=== PATIENT | male | born 1965 | race Caucasian/White ===

== ENCOUNTER 2020-06-26 15:03 | Inpatient (IN) | payer BC, OTHER ==
[2020-06-26] VITALS (7 sets, daily range): BP systolic 132–174; BP diastolic 73–95
[~2020-06-26] VITALS: Ht 172 cm; Wt 79.3 kg
--- NOTE | 2020-06-26 15:23 | Diagnostic Imaging Report ---
PROCEDURE: CT head wo r/o stroke. TECHNIQUE: Multiple contiguous axial images were obtained through the brain without the use of intravenous contrast. Auto Exposure Controls were utilized during the CT exam to meet ALARA standards for radiation dose reduction. INDICATION: Left weakness. FINDINGS: Ventricles and sulci are within normal limits. There is no hydrocephalus. There is no midline shift. There is no intracranial mass, hemorrhage, or extra-axial fluid collection. Calvarium is intact. Sinuses and mastoid air cells are clear. There is no definitive evidence of an acute CVA. IMPRESSION: Unremarkable noncontrast CT head. Dictated by: Dictated on workstation # [id number]
[2020-06-26 15:25] LABS: ALBUMIN 4.2 GM/DL (3.2-4.5); BASOPHILS # (AUTO) 0.1 10^3/uL (0.0-0.1); BASOPHILS % (AUTO) 1 % (0-10); CHLORIDE 104 MMOL/L (98-107); EOSINOPHILS # (AUTO) 0.4 10^3/uL (0.0-0.3); EOSINOPHILS % (AUTO) 6 % (0-10); HEMATOCRIT 42 % (40-54); HEMOGLOBIN 14.6 G/DL (13.3-17.7); LYMPHOCYTES # (AUTO) 1.9 X 10^3 (1.0-4.0); LYMPHOCYTES % (AUTO) 25 % (12-44); MEAN CORPUSCULAR HEMOGLOBIN 31 PG (25-34); MEAN CORPUSCULAR HGB CONC 35 G/DL (32-36); MEAN CORPUSCULAR VOLUME 89 FL (80-99); MEAN PLATELET VOLUME 11.2 FL (7.4-10.4); MONOCYTES # (AUTO) 0.9 X 10^3 (0.0-1.0); MONOCYTES % (AUTO) 12 % (0-12); NEUTROPHILS # (AUTO) 4.4 X 10^3 (1.8-7.8); NEUTROPHILS % (AUTO) 57 % (42-75); PLATELET COUNT 218 10^3/uL (130-400); POTASSIUM 3.2 MMOL/L (3.6-5.0); RED CELL DISTRIBUTION WIDTH 13.4 % (10.0-14.5); SODIUM 138 MMOL/L (135-145); WHITE BLOOD COUNT 7.6 10^3/uL (4.3-11.0)
[2020-06-26 15:27] LABS: FIBRIN DEGRADATION PRODUCTS 0.55 UG/ML (0.00-0.49); GLUCOSE 108 MG/DL (70-105); PROTHROMBIN TIME PATIENT 13.9 SEC (12.2-14.7); TOTAL PROTEIN 6.8 GM/DL (6.4-8.2)
[2020-06-26 15:28] LABS: CARBON DIOXIDE 23 MMOL/L (21-32)
[2020-06-26 15:29] LABS: BILIRUBIN,TOTAL 0.5 MG/DL (0.1-1.0)
[2020-06-26] MEDS ORDERED: CATHETER FLUSH 10 ML SYR IV PRN (15:30)
[2020-06-26] MEDS ORDERED: HOLD METFORMIN - RECEIVED CONTRAST 20 ML VIAL IV SCH (15:30)
[2020-06-26] MEDS ORDERED: IOHEXOL 350 MG/ML 100 ML (OMNIPAQUE 350) VIAL IV ONE (15:30)
[2020-06-26] MEDS ORDERED: NS 100 ML (IVPB) BAG IV ONE (15:30)
[2020-06-26 15:31] LABS: ALKALINE PHOSPHATASE 86 U/L (40-136); CREATININE SERUM 1.17 MG/DL (0.60-1.30); GFR ESTIMATED > 60
[2020-06-26 15:32] LABS: BUN/CREATININE RATIO 10
[2020-06-26 15:34] LABS: ALANINE AMINOTRANSFERASE 23 U/L (0-55)
--- NOTE | 2020-06-26 15:45 | Diagnostic Imaging Report ---
CT cerebral perfusion June 26, 2020. INDICATION: Left-sided weakness. Correlation made with CT examination from the same day. TECHNIQUE: After intravenous administration of contrast, CT cerebral perfusion was performed in the usual fashion. Findings: There appear to be appropriate arterial input and venous outflow selections. There is mild motion on the translational maps. The arterial and venous curves appear appropriate for diagnostic assessment. On analysis with rapid stroke software, there are no regions of core infarct demonstrated of a cerebral blood flow of less than 30% volume. There are no findings of prolongation of the Tmax greater than 6 seconds. On the individual threshold maps, there is a small region of prolongation demonstrated within the right anterior temporal lobe with prolongation of 4 seconds, but this appears to be artifactual in nature related to the right mastoid ridge and skull base. The individual perfusion maps demonstrate no findings of focal asymmetry on the cerebral blood volume imaging or on cerebral blood flow. There are no definable deficits demonstrated on the mean transit time. IMPRESSION: 1. No CT perfusion evidence of a core infarct or findings to suggest a current penumbra. Dictated by: Dictated on workstation # [id number]
[2020-06-26] MEDS ORDERED: ALTEPLASE 100 MG/VIAL (ACTIVASE) ONE (15:46)
--- NOTE | 2020-06-26 15:57 | Diagnostic Imaging Report ---
PROCEDURE: CT angiography of the head and CT angiography of the neck with and without contrast. TECHNIQUE: Contiguous noncontrast images were obtained from the skull base through the vertex. After intravenous contrast administration, helical CT angiography of the neck was performed. Source data was reformatted into 3D MIP projections. Delayed post contrast acquisition was also obtained. Auto Exposure Controls were utilized during the CT exam to meet ALARA standards for radiation dose reduction. INDICATION: Left weakness. FINDINGS: Ventricles and sulci are within normal limits. There is no hydrocephalus. There is no midline shift. There is no mass, hemorrhage, or extra-axial fluid collection. There are no abnormal areas of contrast enhancement. There is no evidence of a large vessel occlusion. There is some minimal atherosclerotic plaque in the cavernous carotid artery on the right. There are no vascular malformations or aneurysms. The sinuses and mastoid air cells are clear. The nasopharyngeal, oropharyngeal, and hypopharyngeal tissues are symmetric and without mass effect. The parotid, submandibular, and thyroid glands are normal in appearance. There is mild cervical spondylosis. Prevertebral soft tissues are within normal limits. Epiglottis is normal. Lung apices are clear. There is no pathologically enlarged adenopathy or mass in the neck. There is moderate plaque in the proximal right internal carotid artery just distal to the bifurcation. There is mild plaque on the left. The vertebral arteries are widely patent as are the distal internal carotid arteries. There is no dissection or occlusion. IMPRESSION: No evidence of large vessel occlusion. Moderate plaque in the right proximal right internal carotid artery likely greater than 50% stenosis. Recommend correlation with carotid Doppler. Otherwise unremarkable CTA neck. Dictated by: Dictated on workstation # [id number]
--- NOTE | 2020-06-26 16:23 | ED Neurological Problem ---
General Chief Complaint: Neuro-Stroke Like Symptoms Stated Complaint: STROKE SYMPTOMS Nursing Triage Note: Pt to ED via EMS. EMS reports pt was at work when pt called boss and stated, "I need an ambulance." EMS reports had sudden onsent of L sided facial weakness, slurred speach. Last known well time for pt was 1430. Nursing Sepsis Screen: No Definite Risk Source: patient Exam Limitations: no limitations History of Present Illness Date Seen by Provider: Jun 26, 2020 Time Seen by Provider: 15:04 Initial Comments This 55-year-old gentleman presents to the emergency room via EMS from his work site where he suddenly developed left-sided weakness and dysarthria at allie roximately 14:30. 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 EMS crew notes nearly flaccid extremities on the left and significant facial droop with dysarthria. Symptoms improved notably in route. Allergies and Home Medications Allergies Coded Allergies: No Allergy Information Available (Unverified , 06/26/20) Patient Home Medication List Home Medication List Reviewed: Yes Review of Systems Review of Systems Constitutional: no symptoms reported Eyes: No Symptoms Reported Ears, Nose, Mouth, Throat: no symptoms reported Respiratory: no symptoms reported Cardiovascular: no symptoms reported Gastrointestinal: no symptoms reported Genitourinary: no symptoms reported Musculoskeletal: no symptoms reported Skin: no symptoms reported Psychiatric/Neurological: See HPI Endocrine: No Symptoms Reported Hematologic/Lymphatic: No Symptoms Reported Past Wnvtpyb-Pvtmhv-Cmwlxr Hx Past Med/Social Hx: Reviewed Nursing Past Med/Soc Hx Patient Social History Alcohol Use: Occasionally Uses Recreational Drug Use: No 2nd Hand Smoke Exposure: No Recent Foreign Travel: No Contact w/Someone Who Travel: No Recent Infectious Disease Expo: No Recent Hopitalizations: No Seasonal Allergies Seasonal Allergies: No Past Medical History Surgeries: Yes (CATARACT) Eye Surgery Respiratory: No Cardiac: No Neurological: No Genitourinary: No Gastrointestinal: No Musculoskeletal: No Endocrine: No HEENT: No Cancer: No Psychosocial: No Blood Disorders: No Physical Exam Vital Signs Vital Signs - First Documented 06/26/20 15:03 Pulse 120 Resp 15 B/P (MAP) 172/88 (116) Pulse Ox 99 O2 Delivery Room Air Capillary Refill : Less Than 3 Seconds Height, Weight, BMI Height: '" Weight: lbs. oz. kg; 26.00 BMI Method: General Appearance: WD/WN, no apparent distress HEENT: PERRL/EOMI, normal ENT inspection, pharynx normal Neck: normal inspection Respiratory: lungs clear, normal breath sounds, no respiratory distress, no accessory muscle use Cardiovascular: regular rate, rhythm, no edema, no murmur Gastrointestinal: normal bowel sounds, non tender, soft Extremities: normal inspection, no pedal edema Neurologic/Psychiatric: alert, normal mood/affect, oriented x 3, abnormal halfway house counselor II-XII (left-sided facial droop with dysarthria), motor weakness (very subtle weakness of the distal left upper extremity muscles.) Crainal Nerves: PERRL, abnormal speech Coordination/Gait: normal finger to nose, normal gait Motor/Sensory: weak motor strength LUE (minimal in the distal small muscles) Stroke NIH Stroke Scale Assessment Level of Consciousness: 0=Alert (0), Level of Consciousness-Questions: 0=Answers both month/age (0), LOC Commands: 0=Performs both tasks (0), Facial Movement (Facial Paresis): 1=Minor paralysis (1), Motor Function-Arms Right: 0=No drift (0), Motor Function-Arms Left: 0=No drift (0), Motor Function-Legs Right: 0=No drift (0), Motor Function-Legs Left: 0=No drift (0), Limb Ataxia: 0=Absent (0), Sensory: 0=Normal:no loss (0), Best Language: 0=No aphasia (0), Dysarthria: 1=Mild to moderate loss (1), Extinction & Inattention: 0=No abnormality (0), Total: 2 Progress/Results/Core Measures Results/Orders Lab Results Laboratory Tests Test 06/26/20 15:05 06/26/20 16:15 Range/Units White Blood Count 7.6 4.3-11.0 10^3/uL Red Blood Count 4.73 4.35-5.85 10^6/uL Hemoglobin 14.6 13.3-17.7 G/DL Hematocrit 42 40-54 % Mean Corpuscular Volume 89 80-99 FL Mean Corpuscular Hemoglobin 31 25-34 PG Mean Corpuscular Hemoglobin Concent 35 32-36 G/DL Red Cell Distribution Width 13.4 10.0-14.5 % Platelet Count 218 130-400 10^3/uL Mean Platelet Volume 11.2 H 7.4-10.4 FL Neutrophils (%) (Auto) 57 42-75 % Lymphocytes (%) (Auto) 25 12-44 % Monocytes (%) (Auto) 12 0-12 % Eosinophils (%) (Auto) 6 0-10 % Basophils (%) (Auto) 1 0-10 % Neutrophils # (Auto) 4.4 1.8-7.8 X 10^3 Lymphocytes # (Auto) 1.9 1.0-4.0 X 10^3 Monocytes # (Auto) 0.9 0.0-1.0 X 10^3 Eosinophils # (Auto) 0.4 H 0.0-0.3 10^3/uL Basophils # (Auto) 0.1 0.0-0.1 10^3/uL Prothrombin Time 13.9 12.2-14.7 SEC INR Comment 1.0 0.8-1.4 Activated Partial Thromboplast Time 26 24-35 SEC D-Dimer 0.55 H 0.00-0.49 UG/ML Sodium Level 138 135-145 MMOL/L Potassium Level 3.2 L 3.6-5.0 MMOL/L Chloride Level 104 98-107 MMOL/L Carbon Dioxide Level 23 21-32 MMOL/L Anion Gap 11 5-14 MMOL/L Blood Urea Nitrogen 12 7-18 MG/DL Creatinine 1.17 0.60-1.30 MG/DL Estimat Glomerular Filtration Rate > 60 BUN/Creatinine Ratio 10 Glucose Level 108 H 70-105 MG/DL Calcium Level 9.0 8.5-10.1 MG/DL Corrected Calcium 8.8 8.5-10.1 MG/DL Total Bilirubin 0.5 0.1-1.0 MG/DL Aspartate Amino Transf (AST/SGOT) 24 5-34 U/L Alanine Aminotransferase (ALT/SGPT) 23 0-55 U/L Alkaline Phosphatase 86 40-136 U/L Troponin I < 0.028 <0.028 NG/ML Total Protein 6.8 6.4-8.2 GM/DL Albumin 4.2 3.2-4.5 GM/DL Urine Color YELLOW Urine Clarity SL CLOUDY Urine pH 7.0 5-9 Urine Specific [place] <=1.005 1.016-1.022 Urine Protein NEGATIVE NEGATIVE Urine Glucose (UA) NEGATIVE NEGATIVE Urine Ketones NEGATIVE NEGATIVE Urine Nitrite NEGATIVE NEGATIVE Urine Bilirubin NEGATIVE NEGATIVE Urine Urobilinogen 1.0 < = 1.0 MG/DL Urine Leukocyte Esterase NEGATIVE NEGATIVE Urine RBC (Auto) NEGATIVE NEGATIVE Urine RBC NONE /HPF Urine WBC NONE /HPF Urine Squamous Epithelial Cells NONE /HPF Urine Crystals NONE /LPF Urine Bacteria NEGATIVE /HPF Urine Casts NONE /LPF Urine Mucus NEGATIVE /LPF Urine Culture Indicated NO My Orders Orders - CONCHITA BECKHAM MD Ct Head Wo-R/O Stroke (06/26/20 15:05) Cbc With Automated Diff (06/26/20 15:05) Protime With Inr (06/26/20 15:05) Partial Thromboplastin Time (06/26/20 15:05) Comprehensive Metabolic Panel (06/26/20 15:05) Fibrin Degradation Products (06/26/20 15:05) Troponin I (06/26/20 15:05) Ua Culture If Indicated (06/26/20 15:05) Chest 1 View, Ap/Pa Only (06/26/20 15:05) Ekg Tracing (06/26/20 15:05) Accucheck Stat ONCE (06/26/20 15:05) Ed Iv/Invasive Line Start (06/26/20 15:05) Ed Iv/Invasive Line Start (06/26/20 15:05) Vital Signs Stroke Patient Q15M (06/26/20 15:05) O2 (06/26/20 15:05) Intake & Output 06,14,22 (06/26/20 15:05) Monitor-Rhythm Ecg Trace Only (06/26/20 15:05) Dysphagia Screening Tool (06/26/20 15:05) Post Thrombolytic Adminstratio (06/26/20 15:05) Lipid Panel (06/27/20 06:00) Ct Angio Head/Neck (06/26/20 15:05) Ct Head Perfusion W/ Contrast (06/26/20 15:05) Iohexol Injection (Omnipaque 350 Mg/Ml 1 (06/26/20 15:30) Received Contrast (Hold Metformin- Contr (06/26/20 15:30) Sodium Chloride Flush (Catheter Flush Sy (06/26/20 15:30) Ns (Ivpb) (Sodium Chloride 0.9% Ivpb Bag (06/26/20 15:30) Alteplase (Activase) (Activase Injection (06/26/20 15:46) Alteplase (Activase) (Activase Injection (06/26/20 16:30) Post Thrombolytic Adminstratio (06/26/20 16:30) Vital Signs Stroke Patient Q15M (06/26/20 16:38) Monitor-Rhythm Ecg Trace Only (06/26/20 16:38) Dysphagia Screening Tool (06/26/20 16:38) Alteplase (Activase) (Activase Injection (06/26/20 16:38) Post Thrombolytic Adminstratio (06/26/20 16:38) Medications Given in ED Current Medications Medications Dose Ordered Sig/Cem Route Start Time Stop Time Status Last Admin Dose Admin Alteplase, Recombinant (0.9mg/ kg-max 90mg) with ... 1638 ONCE IV 06/26/20 16:38 06/26/20 16:42 DC 06/26/20 15:54 68.8 MG Vital Signs/I&O 06/26/20 15:03 Pulse 120 Resp 15 B/P (MAP) 172/88 (116) Pulse Ox 99 O2 Delivery Room Air Blood Pressure Mean: 116 Progress Progress Note : Time: 16:23 Progress Note A stroke activation was immediately paged him patient was taken directly from the ambulance to the CT scanner. CT of the head was unremarkable. CT angiogram and CT perfusion scan followed. These showed no large vessel occlusion. There was significant plaquing at the right carotid bifurcation. Patient's symptoms improved significantly. 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 However, he continued to have some dysarthria and some fine motor weakness in his hand. I discussed the case with Dr. Saravia, stroke neurologist at [facility]. She recommended offering TPA after discussion of risks and benefits with the patient. After discussing the risks and benefits which included up to a 6 percent risk of life-threatening bleed, patient decides to receive TPA. His job requires fine motor skills and strength of the hands which played a significant role in his decision. We also discussed the situation with his prior to administering the TPA and she was in agreement. TPA was initiated. Initial ECG Impression Date: Jun 26, 2020 Initial ECG Impression Time: 15:36 Initial ECG Rate: 97 Initial ECG Rhythm: Normal Sinus Initial ECG Intervals: Normal Initial ECG Impression: Normal Comment Normal sinus rhythm with no ST elevation or depression. No significant abnormal intervals or axis deviation. Diagnostic Imaging Diagonstic Imaging: CT Plain Films/CT/US/NM/MRI: head Comments CT head viewed by me and report reviewed. See report below: NAME: ENA VERDUZCO [facility] REC#: [id number] PT STATUS: REG ER : 1965 PHYSICIAN: CONCHITA BECKHAM MD ADMIT DATE: 06/26/20/ER Signed Date of Exam:06/26/20 CT HEAD WO-R/O STROKE PROCEDURE: CT head wo r/o stroke. TECHNIQUE: Multiple contiguous axial images were obtained through the brain without the use of intravenous contrast. Auto Exposure Controls were utilized during the CT exam to meet ALARA standards for radiation dose reduction. INDICATION: Left weakness. FINDINGS: Ventricles and sulci are within normal limits. There is no hydrocephalus. There is no midline shift. There is no intracranial mass, hemorrhage, or extra-axial fluid collection. Calvarium is intact. Sinuses and mastoid air cells are clear. There is no definitive evidence of an acute CVA. IMPRESSION: Unremarkable noncontrast CT head. Dictated by: Dictated on workstation # [id number] Dict: 06/26/20 1519 Trans: 06/26/20 1553 AS6 [id number] Interpreted by: ERICKA PARIKH MD Electronically signed by: ERICKA PARIKH MD 06/26/20 1553 Diagonstic Imaging: CT Plain Films/CT/US/NM/MRI: other (Angiogram head and neck) Comments CT angiogram head and neck report reviewed and discussed with the radiologist. See report below: NAME: ENA VERDUZCO [facility] REC#: [id number] PT STATUS: REG ER : 1965 PHYSICIAN: CONCHITA BECKHAM MD ADMIT DATE: 06/26/20/ER Draft Date of Exam:06/26/20 CT ANGIO HEAD/NECK PROCEDURE: CT angiography of the head and CT angiography of the neck with and without contrast. TECHNIQUE: Contiguous noncontrast images were obtained from the skull base through the vertex. After intravenous contrast administration, helical CT angiography of the neck was performed. Source data was reformatted into 3D MIP projections. Delayed post contrast acquisition was also obtained. Auto Exposure Controls were utilized during the CT exam to meet ALARA standards for radiation dose reduction. INDICATION: Left weakness. FINDINGS: Ventricles and sulci are within normal limits. There is no hydrocephalus. There is no midline shift. There is no mass, hemorrhage, or extra-axial fluid collection. There are no abnormal areas of contrast enhancement. There is no evidence of a large vessel occlusion. There is some minimal atherosclerotic plaque in the cavernous carotid artery on the right. There are no vascular malformations or aneurysms. The sinuses and mastoid air cells are clear. The nasopharyngeal, oropharyngeal, and hypopharyngeal tissues are symmetric and without mass effect. The parotid, submandibular, and thyroid glands are normal in appearance. There is mild cervical spondylosis. Prevertebral soft tissues are within normal limits. Epiglottis is normal. Lung apices are clear. There is no pathologically enlarged adenopathy or mass in the neck. There is moderate plaque in the proximal right internal carotid artery just distal to the bifurcation. There is mild plaque on the left. The vertebral arteries are widely patent as are the distal internal carotid arteries. There is no dissection or occlusion. IMPRESSION: No evidence of large vessel occlusion. Moderate plaque in the right proximal right internal carotid artery likely greater than 50% stenosis. Recommend correlation with carotid Doppler. Otherwise unremarkable CTA neck. Dictated on workstation # [id number] Dict: 06/26/20 1550 Trans: 06/26/20 1557 [id number] Interpreted by: ERICKA PARIKH MD Diagonstic Imaging: Xray Plain Films/CT/US/NM/MRI: chest Comments NAME: ENA VERDUZCO [facility] REC#: [id number] PT STATUS: REG ER : 1965 PHYSICIAN: CONCHITA BECKHAM MD ADMIT DATE: 06/26/20/ER Signed Date of Exam:06/26/20 CHEST 1 VIEW, AP/PA ONLY INDICATION: Sudden-onset left-sided facial weakness, slurred speech. TECHNIQUE: Single-view chest at 04:06 p.m. CORRELATION STUDY: None. FINDINGS: Heart size is enlarged. Vasculature is slightly prominent without evidence of overt failure. Lung geller are hyperinflated with prominent interstitial markings, likely chronic lung disease. There is very slight asymmetric vague increased density of the right mid-upper lung field compared to the left. IMPRESSION: 1. Negative for acute abnormality of the chest. 2. Cardiac enlargement with borderline vasculature. 3. Findings do suggest COPD. Questionable vague increased density in the right mid-upper lung field. Would recommend short-term follow-up two-view chest imaging to exclude potential underlying mass. Dictated by: Dictated on workstation # [id number] Dict: 06/26/20 1615 Trans: 06/26/20 1631 AS6 [id number] Interpreted by: MARIE BOWLES DO Electronically signed by: MARIE BOWLES DO 06/26/20 1631 Diagonstic Imaging: CT Plain Films/CT/US/NM/MRI: head (Perfusion scan) Comments CT perfusion scan discussed with the radiologist and report reviewed. See report below: NAME: ENA VERDUZCO [facility] REC#: [id number] PT STATUS: REG ER : 1965 PHYSICIAN: CONCHITA BECKHAM MD ADMIT DATE: 06/26/20/ER Signed Date of Exam:06/26/20 CT HEAD PERFUSION W/ CONTRAST CT cerebral perfusion June 26, 2020. INDICATION: Left-sided weakness. Correlation made with CT examination from the same day. TECHNIQUE: After intravenous administration of contrast, CT cerebral perfusion was performed in the usual fashion. Findings: There appear to be appropriate arterial input and venous outflow selections. There is mild motion on the translational maps. The arterial and venous curves appear appropriate for diagnostic assessment. On analysis with rapid stroke software, there are no regions of core infarct demonstrated of a cerebral blood flow of less than 30% volume. There are no findings of prolongation of the Tmax greater than 6 seconds. On the individual threshold maps, there is a small region of prolongation demonstrated within the right anterior temporal lobe with prolongation of 4 seconds, but this appears to be artifactual in nature related to the right mastoid ridge and skull base. The individual perfusion maps demonstrate no findings of focal asymmetry on the cerebral blood volume imaging or on cerebral blood flow. There are no definable deficits demonstrated on the mean transit time. IMPRESSION: 1. No CT perfusion evidence of a core infarct or findings to suggest a current penumbra. Dictated by: Dictated on workstation # [id number] Dict: 06/26/20 1537 Trans: 06/26/20 1543 [facility] [id number] Interpreted by: MAXINE ESPANA MD Electronically signed by: MAXINE ESPANA MD 06/26/20 1543 Departure Communication (Admissions) Time/Spoke to Admitting Phy: 16:10 Dr. Mccabe Impression Primary Impression: CVA (cerebral vascular accident) Qualified Codes: I63.9 - Cerebral infarction, unspecified Additional Impressions: Left-sided weakness Dysarthria Disposition: ADMITTED INPATIENT Condition: Improved Admissions Decision to Admit Reason: Admit from ER (General) Decision to Admit/Date: Jun 26, 2020 Time/Decision to Admit Time: 15:05 CONCHITA BECKHAM MD Jun 26, 2020 16:23
--- NOTE | 2020-06-26 16:29 | Diagnostic Imaging Report ---
INDICATION: Sudden-onset left-sided facial weakness, slurred speech. TECHNIQUE: Single-view chest at 04:06 p.m. CORRELATION STUDY: None. FINDINGS: Heart size is enlarged. Vasculature is slightly prominent without evidence of overt failure. Lung geller are hyperinflated with prominent interstitial markings, likely chronic lung disease. There is very slight asymmetric vague increased density of the right mid-upper lung field compared to the left. IMPRESSION: 1. Negative for acute abnormality of the chest. 2. Cardiac enlargement with borderline vasculature. 3. Findings do suggest COPD. Questionable vague increased density in the right mid-upper lung field. Would recommend short-term follow-up two-view chest imaging to exclude potential underlying mass. Dictated by: Dictated on workstation # [id number]
[2020-06-26] MEDS ORDERED: ALTEPLASE 100 MG/VIAL (ACTIVASE) IV ONE ×2 (16:30→16:38)
[2020-06-26 16:32] LABS: BILIRUBIN,URINE NEGATIVE (NEGATIVE); CLARITY,URINE SL CLOUDY; COLOR,URINE YELLOW; GLUCOSE, URINE (UA) NEGATIVE (NEGATIVE); KETONES,URINE NEGATIVE (NEGATIVE); LEUKOCYTE ESTERASE ,URINE NEGATIVE (NEGATIVE); NITRITE,URINE NEGATIVE (NEGATIVE); PROTEIN,URINE NEGATIVE (NEGATIVE)
--- NOTE | 2020-06-26 16:36 | NUR ---
Post CT scale was performed at 1524.
--- NOTE | 2020-06-26 16:40 | NUR ---
Pt reports feeling "completely normal" at this time.
--- NOTE | 2020-06-26 16:46 | NUR ---
Attempted to call ICU for reports; no answer.
--- NOTE | 2020-06-26 16:47 | NUR ---
finger stick cancelled per Dr. Rainey.
[2020-06-26 16:51] LABS: BACTERIA,URINE NEGATIVE /HPF
--- NOTE | 2020-06-26 17:02 | NUR ---
REPORT RECEIVED FROM TISH HARRIS.
--- NOTE | 2020-06-26 17:22 | NUR ---
ENA VERDUZCO admitted to room CU10-1, with an admitting diagnosis of CVA, on 06/26/20 from ER via [facility], accompanied by TISH HARRIS. ENA VERDUZCO introduced to surroundings, call light, bed controls, phone, TV, temperature control, lights, meal times, smoking policy, visitor policy, side rail policy, bathrooms and showers. Patient Rights given to patient in the handbook. ENA VERDUZCO verbalizes understanding that [facility] is not responsible for the loss or damage to any personal effects or valuables that are kept in the patients possession during their hospitalization. Patient and/or family were informed about the Rapid Response Team and its purpose.
[2020-06-26] MEDS ORDERED: D5 1/2 NS W/KCL 40 MEQ/L 1,000 ML IV ONE (17:24)
[2020-06-26] MEDS ORDERED: ONDANSETRON 4 MG/2 ML (SDV) Z0FRAN IVP PRN (17:45)
[2020-06-26] MEDS: D5 1/2 NS W/KCL 40 MEQ/L 1,000 ML IV SCH (17:50)
[2020-06-27] VITALS (10 sets, daily range): BP systolic 118–167; BP diastolic 65–99
[2020-06-27] MEDS: D5 1/2 NS W/KCL 40 MEQ/L 1,000 ML IV SCH (00:46)
[2020-06-27 03:13] LABS: BASOPHILS % (AUTO) 1 % (0-10); EOSINOPHILS # (AUTO) 0.4 10^3/uL (0.0-0.3); EOSINOPHILS % (AUTO) 5 % (0-10); HEMATOCRIT 41 % (40-54); HEMOGLOBIN 14.4 G/DL (13.3-17.7); LYMPHOCYTES # (AUTO) 1.5 X 10^3 (1.0-4.0); LYMPHOCYTES % (AUTO) 20 % (12-44); MEAN CORPUSCULAR HEMOGLOBIN 31 PG (25-34); MEAN CORPUSCULAR HGB CONC 35 G/DL (32-36); MEAN CORPUSCULAR VOLUME 90 FL (80-99); MONOCYTES # (AUTO) 0.7 X 10^3 (0.0-1.0); MONOCYTES % (AUTO) 9 % (0-12); NEUTROPHILS % (AUTO) 66 % (42-75); PLATELET COUNT 190 10^3/uL (130-400); RED CELL DISTRIBUTION WIDTH 13.5 % (10.0-14.5); WHITE BLOOD COUNT 7.5 10^3/uL (4.3-11.0)
[2020-06-27 03:24] LABS: CHLORIDE 108 MMOL/L (98-107); POTASSIUM 4.8 MMOL/L (3.6-5.0); SODIUM 136 MMOL/L (135-145)
[2020-06-27 03:25] LABS: CALCIUM 8.2 MG/DL (8.5-10.1)
[2020-06-27 03:26] LABS: GLUCOSE 124 MG/DL (70-105); TRIGLYCERIDES 202 MG/DL (<150); VLDL CHOLESTEROL 40 MG/DL (5-40)
[2020-06-27 03:27] LABS: CARBON DIOXIDE 18 MMOL/L (21-32)
[2020-06-27 03:29] LABS: PHOSPHORUS 3.8 MG/DL (2.3-4.7)
[2020-06-27 03:30] LABS: CREATININE SERUM 1.08 MG/DL (0.60-1.30); GFR ESTIMATED > 60
[2020-06-27 03:31] LABS: BUN/CREATININE RATIO 10; CHOLESTEROL 184 MG/DL (< 200)
[2020-06-27 03:32] LABS: HDL CHOLESTEROL 32 MG/DL (40-60); MAGNESIUM 2.2 MG/DL (1.6-2.4)
[2020-06-27 03:51] LABS: BAND NEUTROPHILS 1 %; EOSINOPHILS % (MANUAL) 2 %; LYMPHOCYTES % (MANUAL) 16 %; MONOCYTES % (MANUAL) 8 %; NEUTROPHILS % (MANUAL) 69 %
[2020-06-27 03:52] LABS: ATYPICAL LYMPHOCYTES 3 %; BASOPHILS % (MANUAL) 1 %; MICROCYTOSIS SLIGHT
--- NOTE | 2020-06-27 04:06 | Pulmonary Consultation ---
ANIVAL [facility] MED STUDENT 06/27/20 0406: History of Present Illness History of Present Illness Date Seen by Provider: Jun 27, 2020 Time Seen by Provider: 03:50 Date of Admission History of Present Illness Fredi Zhu is a 55 year old male seen today due to R sided CVA treated yeste rday with TPA. He reports having L sided weakness and dysarthria yesterday at 2:30 pm, which prompted him coming to the ER. Weakness worst in his L arm, hand, and lower face compared to L leg, which had resolved by the time he arrived in the ICU from the ER. Denies having any medical conditions or daily medications. When seen this morning he denies having any strength deficits in his L side, denies any dysarthria. Denies any loss of sensation, numbness, or tingling. Allergies and Home Medications Allergies Coded Allergies: No Allergy Information Available (Unverified , 06/26/20) Past Ayklnwf-Jwiodm-Ucmwdy Hx Past Med/Social Hx: Reviewed Nursing Past Med/Soc Hx Patient Social History Alcohol Use: Occasionally Uses Recreational Drug Use: No 2nd Hand Smoke Exposure: No Recent Foreign Travel: No Contact w/Someone Who Travel: No Recent Infectious Disease Expo: No Recent Hopitalizations: No Seasonal Allergies Seasonal Allergies: No Past Medical History Surgeries: Yes (CATARACT) Eye Surgery Respiratory: No Cardiac: No Neurological: No Genitourinary: No Gastrointestinal: No Musculoskeletal: No Endocrine: No HEENT: No Cancer: No Psychosocial: No Blood Disorders: No Review of Systems Constitutional: No: Fever, Chills, Weakness ENT: No: Nose congestion, Throat pain Respiratory: No: Cough, Shortness of breath Cardiovascular: No: Chest Pain, Palpitations Gastrointestinal: No: Nausea, Vomiting, Abdominal Pain, Diarrhea, Constipation Genitourinary: No Dysuria, No Frequency, No Incontinence, No Retention Neurological: No: Weakness, Numbness, Change in speech Sepsis Event Evaluation Height, Weight, BMI Height: '" Weight: lbs. oz. kg; 26.00 BMI Method: Exam Exam Vital Signs Date Time Temp Pulse Resp B/P (MAP) Pulse Ox O2 Delivery O2 Flow Rate FiO2 06/27/20 00:00 Room Air 06/27/20 00:00 66 15 118/81 (93) 95 Room Air 06/26/20 23:00 74 132/73 (92) 92 Room Air 06/26/20 22:00 73 144/83 (103) 95 Room Air 06/26/20 21:00 74 15 149/86 (107) 96 Room Air 06/26/20 20:00 Room Air 06/26/20 20:00 80 17 174/83 (113) 96 Room Air 06/26/20 19:00 84 17 152/95 (114) 98 Room Air 06/26/20 18:22 86 06/26/20 18:00 86 17 166/82 (110) 98 Room Air 06/26/20 17:30 82 19 159/89 (112) 97 Room Air 06/26/20 17:22 Room Air 06/26/20 17:20 80 15 135/83 (116) 97 Room Air 06/26/20 15:03 120 15 172/88 (116) 99 Room Air I & O 06/27/20 07:00 Intake Total 408.8 ml Output Total 0 ml Balance 408.8 ml Height & Weight Height: '" Weight: lbs. oz. kg; 26.00 BMI Method: General Appearance: No Apparent Distress, WD/WN HEENT: PERRL/EOMI; No Scleral Icterus (L), No Scleral Icterus (R) Neck: Full Range of Motion, Normal Inspection, Non Tender, Supple Respiratory: Lungs Clear, Normal Breath Sounds, No Accessory Muscle Use, No Respiratory Distress Cardiovascular: Regular Rate, Rhythm, No Edema, No JVD, Systolic Murmur Extremity: Normal Inspection, Non Tender, No Calf Tenderness, No Pedal Edema Neurologic/Psychiatric: Alert, Oriented x3, No Motor/Sensory Deficits, Normal Mood/Affect Skin: Normal Color, Warm/Dry Results Lab Laboratory Tests 06/26/20 15:05 06/27/20 03:05 Assessment/Plan Assessment/Plan R CVA - received TPA yesterday, L sided weakness and dysarthria improved today - imaging : No CT perfusion evidence of a core infarct or findings to suggest a current penumbra, CTA neck showed moderate plaque in the right proximal right internal carotid artery likely greater than 50% stenosis. abnormal CXR - Report: Findings do suggest COPD. Questionable vague increased density in the right mid-upper lung field. Would recommend short-term follow-up two-view chest imaging to exclude potential underlying mass. MIKE SALAS DO 06/27/20 0632: History of Present Illness History of Present Illness Time Seen by Provider: 06:27 Allergies and Home Medications Allergies Coded Allergies: No Allergy Information Available (Unverified , 06/26/20) Review of Systems Time Seen by Provider: 06:27 Exam Exam General Appearance: No Apparent Distress, WD/WN HEENT: PERRL/EOMI Neck: Full Range of Motion, Normal Inspection, Non Tender, Supple Respiratory: Lungs Clear, Normal Breath Sounds, No Accessory Muscle Use, No Respiratory Distress Cardiovascular: Regular Rate, Rhythm, No Edema, No JVD Extremity: Normal Inspection, Non Tender, No Calf Tenderness, No Pedal Edema Neurologic/Psychiatric: Alert, Oriented x3, No Motor/Sensory Deficits, Normal Mood/Affect Skin: Normal Color, Warm/Dry Assessment/Plan Assessment/Plan Acute CVA s/p TPA -NIH is down to 0 from 13 -Start ASA 24hrs after TPA give -Swallow eval - pt passed -Currently on a regular diet -Check Echocardogram -Check Carotid dopplers AN[facility]AL [facility] MED STUDENT Jun 27, 2020 04:06 MIKE SALAS DO Jun 27, 2020 06:32
[2020-06-27] MEDS ORDERED: KCL 20 MEQ TAB (K-DUR) PO SCH (06:00)
[2020-06-27] MEDS ORDERED: MAGNESIUM 1 GM/100 ML IVPB 100 ML IV SCH (06:00)
[2020-06-27] MEDS ORDERED: POTASSIUM CL 10MEQ/50ML IVPB 50 ML IV SCH (06:00)
--- NOTE | 2020-06-27 08:38 | Diagnostic Imaging Report ---
INDICATION: Left weakness and dysarthria. Comparison is made with prior examination from 06/26/2020. FINDINGS: There is cardiomegaly. There is some venous congestion. There is no pleural effusion or pneumothorax. The mediastinum is unremarkable. IMPRESSION: Cardiomegaly and mild central pulmonary venous congestion. Dictated by: Dictated on workstation # [id number]
[2020-06-27] MEDS ORDERED: ASPIRIN E.C. 325 MG (ECOTRIN) TABLET PO SCH ×2 (09:00→16:00)
[2020-06-27] MEDS ORDERED: lisINopril 10 MG (PRINIVIL) TABLET PO SCH (09:00)
--- NOTE | 2020-06-27 09:46 | Physical Therapy Evaluation ---
PT Evaluation-General Medical Diagnosis Admission Date Jun 26, 2020 at 16:53 Medical Diagnosis: CVA Onset Date: Jun 26, 2020 Therapy Diagnosis Therapy Diagnosis: no impairments Precautions Precautions/Isolations: Standard Precautions Referral Physician: Estelle Reason for Referral: Evaluation/Treatment Medical History Additional Medical History cataract surgery Social History Home: Multilevel Current Living Status: Spouse Entry Into Home: Stairs With Railing Patient states he has many steps outside and inside his home. Prior Prior Level of Function SCALE: Activities may be completed with or without assistive devices. 3-Pvpbjoocxx-mcbrpdf completes the activity by him/herself with no assistance from a helper. 5-Set-up or Clean-up Assistance-helper sets up or cleans up; patient completes activity. [place] assists only prior to or following the activity. 4-Supervision or Touching Assistance-helper provides verbal cues and/or touching/steadying and/or contact guard assistance as patient completes activity. Assistance may be provided throughout the activity or intermittently. 3-Partial/Moderate Assistance-helper does LESS THAN HALF the effort. [place] lifts, holds or supports trunk or limbs, but provides less than half the effort. 2-Substantial/Maximal Assistance-helper does MORE THAN HALF the effort. [place] lifts or holds trunk or limbs and provides more than half the effort. 6-Kmvtbntpw-czivfg does ALL the effort. Patient does none of the effort to complete the activity. Or, the assistance of 2 or more helpers is required for the patient to complete the activity. If activity was not attempted, code reason: 7-Patient Refused. 9-Not Applicable-not attempted and the patient did not perform the activity before the current illness, exacerbation or injury. 10-Not Attempted due to Environmental Limitations-(lack of equipment, weather restraints, etc.). 88-Not Attempted due to Medical Conditions or Safety Concerns. Bed Mobility: 6 Transfers (B,C,W/C): 6 Gait: 6 Stairs: 6 Indoor Mobility (Ambulation): Independent Stairs: Independent PT Evaluation-Current Subjective Patient in bed pre tx, agrees to PT, has no complains of pain, patient states he feels "completely normal". Patient initially had left side weakness, received TPA Pt/Family Goals to go home Objective Patient Orientation: Normal For Age ROM/Strength ROM Lower Extremities WNL Strength Lower Extremities 5/5 gross BLE Neuromuscular (Tone, Coordination, Reflexes) Patient has intact peripheral vision bilaterally and good tracking, symmetrical smile and eyebrows, no abnormal clonus and negative babinski Sensory Vision: Functional Hearing: Impaired Sensation Right Lower Extremit: Intact Sensation Left Lower Extremity: Intact Transfers Roll Left to Right (QC): 6 Sit to Lying (QC): 6 Lying to Sitting/Side of Bed(Q: 6 Sit to Stand (QC): 6 Chair/Xiu-el-Egtkb Xfer(QC): 6 Gait Does the Patient Walk?: Yes Mode of Locomotion: Walk Anticipated Mode of Locomotion: Walk Walk 10 feet (QC): 6 Walk 50 ft with 2 Turns(QC): 6 Walk 150 ft (QC): 6 Distance: 200' Gait Assistive Device: None Comments/Gait Description Patient ambulates independently, no unsteadiness, brisk ambulation. Patient ambulates backward without issue, stands with feet together and with eyes closed without LOB or unsteadiness. Balance Sitting Static: Normal Sitting Dynamic: Normal Standing Static: Normal Standing Dynamic: Normal Assessment/Needs Patient is independent with all mobility, shows no balance impairments. Patient will be discharged from PT Rehab Potential: Good PT Plan Treatment/Plan Treatment Plan: Discontinue PT Treatment Duration: Jun 27, 2020 Frequency: Patient and/or Family Agrees t: Yes Safety Risks/Education Patient Education: Gait Training, Transfer Techniques, Correct Positioning, Safety Issues Teaching Recipient: Patient Teaching Methods: Demonstration, Discussion Response to Teaching: Verbalize Understanding Discharge Recommendations Plan DC Time/GCodes Time In: 901 Time Out: 913 Total Billed Treatment Time: 12 Total Billed Treatment 1 visit SERENA ALICIA PT Jun 27, 2020 09:45
--- NOTE | 2020-06-27 11:00 | NUR ---
SPOKE WITH THE PT TO COMPLETE THE MED REC PT DENIES TAKING ANY PRESCRIPTION OR OTC MEDICATIONS- I SET THE MED REC TO "NO ACTIVE PRESCRIPTIONS"
--- NOTE | 2020-06-27 11:04 | Diagnostic Imaging Report ---
PROCEDURE: US carotid duplex, bilateral. TECHNIQUE: Multiple real-time grayscale images were obtained over the carotid arteries in various projections, bilaterally. Additional spectral analysis and color Doppler duplex images were also obtained. INDICATION: CVA. Left-sided weakness and speech difficulty COMPARISON: CT from 06/26/2020 FINDINGS: Right carotid: There is mild atherosclerosis at the proximal right internal carotid artery which demonstrates approximately 25% narrowing visually. There is no increased velocity. The waveforms demonstrate brisk upstrokes. The right vertebral artery is antegrade. No stenosis is seen in the common or external carotid arteries. Left carotid: There is mild atherosclerosis in the proximal left internal carotid artery without significant stenosis seen in the left carotid system. Waveforms appear normal. No abnormal velocities are seen. The right vertebral artery is antegrade. Parameters based on the consensus panel Pereira-Scale and Doppler ultrasound criteria published August 2003, Radiology, Volume 229. DOPPLER (peak systolic velocity M/S Right Left CCA .60 .65 ICA Proximal .46 .51 ICA Mid .74 .56 ICA Distal .69 .57 RATIO 1.2 .90 ECA 1.0 1.2 VERT .37 .41 IMPRESSION: 1. Mild carotid atherosclerosis with no hemodynamically significant stenosis. Dictated by: Dictated on workstation # [id number]
--- NOTE | 2020-06-27 12:55 | Occupational Therapy Eval ---
OT Evaluation-General/PLF Medical Diagnosis Admission Date Jun 26, 2020 at 16:53 Medical Diagnosis: CVA Onset Date: Jun 26, 2020 Therapy Diagnosis Therapy Diagnosis: no deficits Precautions Precautions/Isolations: Standard Precautions Referral Physician: Estelle Referral Reason: Evaluation/Treatment Medical History Additional Medical History cataracts surgery Current History R CVA 06/26/2020 with TPN Social History Home: [facility] Current Living Status: Spouse Entry Into Home: Stairs With Railing ADL-Prior Level of Function SCALE: Activities may be completed with or without assistive devices. 3-Iszpovkdyj-snwjmuk completes the activity by him/herself with no assistance from a helper. 5-Set-up or Clean-up Assistance-helper sets up or cleans up; patient completes activity. [place] assists only prior to or following the activity. 4-Supervision or Touching Assistance-helper provides verbal cues and/or touching/steadying and/or contact guard assistance as patient completes activity. Assistance may be provided throughout the activity or intermittently. 3-Partial/Moderate Assistance-helper does LESS THAN HALF the effort. [place] lifts, holds or supports trunk or limbs, but provides less than half the effort. 2-Substantial/Maximal Assistance-helper does MORE THAN HALF the effort. [place] lifts or holds trunk or limbs and provides more than half the effort. 4-Ifhkochiy-urttzd does ALL the effort. Patient does none of the effort to complete the activity. Or, the assistance of 2 or more helpers is required for the patient to complete the activity. If activity was not attempted, code reason: 7-Patient Refused. 9-Not Applicable-not attempted and the patient did not perform the activity before the current illness, exacerbation or injury. 10-Not Attempted due to Environmental Limitations-(lack of equipment, weather restraints, etc.). 88-Not Attempted due to Medical Conditions or Safety Concerns. ADL PLOF Comments Pt reports being independent with ADLs and functional mobility at PLOF, no AE/AD. Pt still working but does not indicate where he works or what he does. Self Care: Independent Functional Cognition: Independent DME/Equipment: Tub/Shower OT Current Status Subjective Pt seated in recliner, agreeable to OT evaluation. Pt does not report any pain during tx. Mental Status/Objective Patient Orientation: Person, Place, Time, Situation Current Hand Dominance: Right Upper Extremity ROM WFL Upper Extremity Coordination WFL Upper Extremity Sensation pt denies tingling/numbers BUEs Upper Extremity Strength 5/5 MMT BUEs ADL-Treatment Eating (QC): 6 (pt reports no difficulties eating) Oral Hygiene (QC): 6 (based on clinical judgement pt would be independent with task) Upper Body Dressing (QC): 6 (based on clinical judgement pt would be independent with task) On/Off Footwear (QC): 6 (Pt donned/doffed gripper socks without difficulty.) Other Treatments Pt seated in recliner, OT introduced self and explained purpose and benefits of OT. Pt then provided information about PLOF and home set up, indicating he lives with his and he was independent at [facility]. At this time pt feels like he is at his PLOF and has no concerns with returning home. He had no difficulty eating his breakfast and he was able to don/doff socks seated at recliner. This OT talked with PT who reports pt is independent with functional mobility at this time. Post OT Tx, pt seated in recliner, call light in reach and all needs met. Education OT Patient Education: Correct positioning, Modified ADL techniques, Progress toward Goal/Update tx plan, Purpose of tx/functional activities Teaching Recipient: Patient Teaching Methods: Discussion Response to Teaching: Verbalize Understanding OT Consumer Insight Manager Goals Consumer Insight Manager Goals 1=Demonstrate adherence to instructed precautions during ADL tasks. 2=Patient will verbalize/demonstrate understanding of assistive devices/modifications for ADL. 3=Patient will improve strength/tolerance for activity to enable patient to perform ADL's. OT Education/Plan Problem List/Assessment Assessment: No Skilled OT Needs ID'd Pt is at his PLOF, independent with ADLs and functional mobility. Pt has no concerns with his ability to safely complete ADLs when he returns home. D/C from OT at this time due to pt being at PLOF. Discharge Recommendations Plan/Recommendations: Discharge/Goals Met Treatment Plan/Plan of Care Treatment,Training & Education: Yes Patient would benefit from OT for education, treatment and training to promote independence in ADL's, mobility, safety and/or upper extremity function for ADL's. Plan of Care: ADL Retraining, Functional Mobility, UE Funct Exercise/Act Treatment Duration: Jun 27, 2020 Frequency: 1 time per week (eval only) Rehab Potential: Good Time/GCodes Start Time: 10:47 Stop Time: 10:57 Total Time Billed (hr/min): 10 Billed Treatment Time 1, BRYAN TAVERAS OT Jun 27, 2020 12:55
[2020-06-27] MEDS ORDERED: ASPI325T32 PO (13:23)
[2020-06-27] MEDS ORDERED: LISI10TA2 PO (13:23)
[2020-06-27] MEDS ORDERED: ATOR40TA PO (13:23)
--- NOTE | 2020-06-27 16:10 | Diagnostic Imaging Report ---
INDICATION: Stroke and headache. TECHNIQUE: Multiple contiguous axial images were obtained through the brain without the use of intravenous contrast. Auto Exposure Controls were utilized during the CT exam to meet ALARA standards for radiation dose reduction. EXAMINATION: Noncontrast brain CT performed and compared to 06/26/2020. FINDINGS: There are no extra-axial fluid collections. No intracranial hemorrhage. No intracranial mass or mass effect. No midline shift. The ventricles are normal in size and position. There were no focal parenchymal abnormalities in the brain. Calvarial windows appear unremarkable. Visualized portions of the orbits and sinuses are normal. IMPRESSION: Negative noncontrast brain CT, no change from the prior study. Dictated by: Dictated on workstation # [id number]
--- NOTE | 2020-06-28 17:11 | Discharge Summary ---
Discharge Summary Hospital Course Was the Problem List Reviewed?: Yes Problems/Dx: (1) Acute ischemic stroke Status: Acute (2) Hypertension Status: Acute Qualifiers: Qualified Codes: I10 - Essential (primary) hypertension (3) Dyslipidemia Status: Acute Hospital Course Date of Admission: Jun 26, 2020 at 16:53 Admission Diagnosis : acute ischemic stroke Family Physician/Provider: Date of Discharge: 06/28/20 Discharge Diagnosis: acute ischemic stroke Hospital Course: Fredi Zhu is a 55-year-old male who presented with left arm weakness and dysphasia and was admitted with acute ischemic stroke. He underwent a CT scan which did not show any abnormalities. With the high likelihood of stroke, he was given TPA and his symptoms resolved. He did not have any residual deficits. A repeat CT scan did not show any abnormalities. He did undergo a CTA which showed some carotid stenosis. A carotid ultrasound was then performed which revealed only mild stenosis. He was started on aspirin. He was started on Lipitor for dyslipidemia. He was started on lisinopril for hypertension. He underwent an echocardiogram which revealed moderate to severe mitral regurgitation. He should establish with a fisher purse seine. He should follow-up with his primary care physician in about a week. Labs and Pending Lab Test: Microbiology 06/26/20 MRSA Screen - Final, Complete MRSA not isolated Home Meds Active Aspirin EC (Aspirin) 325 Mg Tablet.dr 325 Mg PO DAILY 30 Days Lisinopril 10 Mg Tablet 10 Mg PO DAILY 30 Days Lipitor (Atorvastatin Calcium) 40 Mg Tablet 80 Mg PO HS 30 Days Assessment/Pt Instructions take medications as prescribed. Begin taking aspirin and Lipitor to decrease your risk of having another stroke. Begin taking lisinopril for high blood pressure. Follow-up with your primary care physician. Discharge Planning: <30 minutes discharge planning Discharge Instructions Discharge Diet: No Restrictions Activity as Tolerated: Yes Pneumonia Vaccine Order Indica: Yes Discharge Physical Examination Vital Signs Vital Signs Date Time Temp Pulse Resp B/P (MAP) Pulse Ox O2 Delivery O2 Flow Rate FiO2 06/27/20 16:00 Room Air 06/27/20 16:00 68 10 136/81 (99) 97 06/27/20 12:00 36.4 General Appearance: No Apparent Distress, WD/WN HEENT: PERRL/EOMI, Pharynx Normal Respiratory: Lungs Clear, Normal Breath Sounds, No Respiratory Distress Cardiovascular: Regular Rate, Rhythm, No Edema, Systolic Murmur Gastrointestinal: Normal Bowel Sounds, Non Tender, Soft Extremity: Normal Inspection, Non Tender, No Pedal Edema Skin: Normal Color, Warm/Dry Neurologic/Psychiatric: Alert, Oriented x3, No Motor/Sensory Deficits, Normal Mood/Affect Allergies: Coded Allergies: No Allergy Information Available (Unverified , 06/26/20) Discharge Summary Date of Admission Jun 26, 2020 at 16:53 Date of Discharge Jun 27, 2020 at 16:55 Discharge Date: Jun 27, 2020 Discharge Time: 1700 Admission Diagnosis acute ischemic stroke Discharge Diagnosis (1) Acute ischemic stroke Status: Acute (2) Hypertension Status: Acute Qualifiers: Qualified Codes: I10 - Essential (primary) hypertension (3) Dyslipidemia Status: Acute Clinical Quality Measures DVT/VTE Risk/Contraindication: Risk Factor Score Per Nursin RFS Level Per Nursing on Admit: 1=Low/No VTE PPX Stroke: Date of last known well: Jun 26, 2020 JOSE SAEED MD Jun 28, 2020 17:10
== END 2020-06-27 16:55 | disposition home or self-care (01) | DRG 62 ==
LOC: ER 15:04 → ICU 16:53
PROVIDERS: ADMIT Internal Medicine; ATTEND Internal Medicine
DX: I63.9 Cerebral infarction, unspecified (principal); G81.94 Hemiplegia, unspecified affecting left nondominant side; R47.1 Dysarthria and anarthria; R47.81 Slurred speech; R29.810 Facial weakness; R29.713 NIHSS score 13; I65.21 Occlusion and stenosis of right carotid artery; R91.8 Other nonspecific abnormal finding of lung field; I34.0 Nonrheumatic mitral (valve) insufficiency
CPT/HCPCS: 0042T; 36415; 70450; 70496; 70498; 71045; 80048; 80053; 80061; 81000; 83036; 83735; 84100; 84484; 85007; 85025; 85027; 85379; 85610; 85730; 87081; 92977; 93005; 93041; 93306; 93880; 99291